=== PATIENT | male | born 1985 | race Caucasian/White ===

== ENCOUNTER 2020-03-02 20:10 | Emergency (ER) | payer OTHER ==
--- NOTE | 2020-03-02 20:46 | EDM.PDOC ---
ED HPI GENERAL MEDICAL PROBLEM - General Chief Complaint: General Stated Complaint: VARICOSE VEIN RUPTURE Time Seen by Provider: 03/02/20 20:20 Source of Information: Reports: Patient History Limitations: Reports: No Limitations - History of Present Illness INITIAL COMMENTS - FREE TEXT/NARRATIVE: patient accidently hit his left coreas with a fire poker opening a vericose vein 1 hour ago. Presents to ED, area redressed by Ayesha PERLA. When bandage removed, bleeding controlled. CMS +, pedal, popletial pulses 3+. Onset: Today Onset Date: 03/02/20 Onset Time: 19:30 Location: Reports: Lower Extremity, Left Severity: Mild Improves with: Reports: None Worsens with: Reports: None Associated Symptoms: Reports: No Other Symptoms - Related Data Allergies Allergy/AdvReac Type Severity Reaction Status Date / Time No Known Allergies Allergy Verified 03/02/20 20:27 Home Meds: Home Meds lamoTRIgine [Lamotrigine] 150 mg PO BID 03/02/20 [History] ED ROS GENERAL - Review of Systems Review Of Systems: See Below Constitutional: Reports: No Symptoms HEENT: Reports: No Symptoms Respiratory: Reports: No Symptoms Cardiovascular: Reports: No Symptoms Endocrine: Reports: No Symptoms GI/Abdominal: Reports: No Symptoms : Reports: No Symptoms Musculoskeletal: Reports: No Symptoms Skin: Reports: Wound (left coreas just above ankle) Neurological: Reports: No Symptoms Psychiatric: Reports: No Symptoms Hematologic/Lymphatic: Reports: No Symptoms Immunologic: Reports: No Symptoms ED EXAM, GENERAL - Physical Exam Exam: See Below Exam Limited By: No Limitations General Appearance: Alert, WD/WN, No Apparent Distress Neck: Full Range of Motion Respiratory/Chest: No Respiratory Distress Peripheral Pulses: 3+: Posterior Tibial (L), Posterior Tibial (R), Dorsalis Pedis (L) Extremities: Other (bleeding left calf) Neurological: Alert, Oriented, No Motor/Sensory Deficits Psychiatric: Normal Affect, Normal Mood Skin Exam: Warm, Dry Course - Vital Signs Last Recorded V/S: Last Vital Signs Temp 98.6 F 03/02/20 20:10 Pulse 99 03/02/20 20:10 Resp 18 03/02/20 20:10 BP 138/93 H 03/02/20 20:10 Pulse Ox 99 03/02/20 20:10 Departure - Departure Time of Disposition: 20:54 Disposition: Home, Self-Care 01 Clinical Impression: Bleeding from varicose veins of left lower extremity - Discharge Information *PRESCRIPTION DRUG MONITORING PROGRAM REVIEWED*: Not Applicable *COPY OF PRESCRIPTION DRUG MONITORING REPORT IN PATIENT DOUGLAS: Not Applicable Instructions: Varicose Veins, Nonsurgical Procedures for Varicose Veins, Bleeding Varicose Veins Additional Instructions: Keep pressure dressing inplace until tomorrow, elevate leg tonight. If the area starts to bleed again, put the pad on with pressure and elevate. Please return to ED for any increased or new concerning symptoms. Sepsis Event Note (ED) - Evaluation Sepsis Screening Result: No Definite Risk - Focused Exam Vital Signs: Vital Signs Temp Pulse Resp BP Pulse Ox 03/02/20 20:10 98.6 F 99 18 138/93 H 99
== END 2020-03-02 21:00 | disposition home or self-care (01) ==
LOC: LB.ED 20:10
DX: I83.892 Varicose veins of left lower extremity with other complications (principal)
CPT/HCPCS: 99282; 99283